=== PATIENT | female | born 1980 | race African-American/Black ===

== ENCOUNTER 2018-12-14 08:53 | Emergency (ER) | payer OTHER ==
[2018-12-14 09:00] VITALS: BP 125/79; PULSE 92; TEMP 98.4; BMI 29.7
--- NOTE | 2018-12-14 09:20 | PDOC ---
History of Present Illness - General Chief Complaint: Lightheaded Stated Complaint: DIZZY Time Seen by Provider: 12/14/18 09:04 History Source: Patient Exam Limitations: No Limitations Past History - Past Medical History Allergies/Adverse Reactions: Allergies Allergy/AdvReac Type Severity Reaction Status Date / Time No Known Allergies Allergy Verified 12/14/18 08:56 Home Medications: Ambulatory Orders NK [No Known Home Medication] 12/14/18 COPD: No - Immunization History Immunization Up to Date: No - Suicide/Smoking/Psychosocial Hx Smoking Status: No Smoking History: Never smoked Number of Cigarettes Smoked Daily: 0 *Physical Exam - Vital Signs Last Vital Signs Temp Pulse Resp BP Pulse Ox 98.4 F 92 H 16 125/79 99 12/14/18 08:58 12/14/18 08:58 12/14/18 08:58 12/14/18 08:58 12/14/18 08:58 - Physical Exam General Appearance: No: Apparent Distress Respiratory/Chest: positive: Lungs Clear, Normal Breath Sounds. negative: Respiratory Distress Cardiovascular: positive: Regular Rhythm, Regular Rate, S1, S2. negative: Murmur Gastrointestinal/Abdominal: positive: Normal Bowel Sounds, Soft. negative: Tender, Distended, Guarding, Rebound Neurologic: positive: obiee architect II-XII NML intact, Fully Oriented, Alert, Normal Mood/ Affect, Motor Strength 5/5 Moderate Sedation - Procedure Monitoring Vital Signs: Procedure Monitoring Vital Signs Temperature 98.4 F 12/14/18 08:58 Pulse Rate 92 H 12/14/18 08:58 Respiratory Rate 16 12/14/18 08:58 Blood Pressure 125/79 12/14/18 08:58 O2 Sat by Pulse Oximetry (%) 99 12/14/18 08:58 Medical Decision Making - Medical Decision Making 38 y/o F with no sig pmh presents feeling a bit dizzy around an hour ago, but not dizzy now. Mentions felt liker body was swaying, but denies vertigo. Denies fever, chills, sob, cp, abd pain, n/v/d, active bleeding, urinary complaints, changes in vision or gait, numbness/tingling/weakness of extremities. Currently asymptomatic Vitals stable, appears well, no focal deficits Not concerned for ACS or acute neurological issue (such as stroke) Stable for DC 12/14/18 09:16 *DC/Admit/Observation/Transfer Diagnosis at time of Disposition: Dizziness - Discharge Dispostion Disposition: HOME Condition at time of disposition: Stable Decision to Admit order: No - Referrals - Patient Instructions Printed Discharge Instructions: DI for Dizziness-Nonvertigo - Post Discharge Activity
== END 2018-12-14 09:41 | disposition home or self-care (01) ==
LOC: JER 08:53
DX: R42 Dizziness and giddiness (principal)
CPT/HCPCS: 99281-25

== ENCOUNTER 2024-07-01 10:52 | Emergency (ER) | payer OTHER ==
[2024-07-01 11:01] VITALS: BP 149/82; PULSE 96; RESP 18; TEMP 98.6; BMI 30.9
[2024-07-01] MEDS ORDERED: ACETAMINOPHEN 325 MG TABLET (FP) ONE (12:24)
[2024-07-01] MEDS ORDERED: BACITRACIN ZINC 15 GM TUBE TOPICAL OINTMENT ONE (12:24)
[2024-07-01] MEDS ORDERED: DIPHTH,PERTUSS(ACELL),TET 0.5 ML DISP.SYRIN IM ONE (12:24)
[2024-07-01] MEDS: DIPHTH,PERTUSS(ACELL),TET 0.5 ML DISP.SYRIN IM ONE (12:31)
[2024-07-01] MEDS: BACITRACIN ZINC 15 GM TUBE TOPICAL OINTMENT TP ONE (12:32)
[2024-07-01] MEDS: ACETAMINOPHEN 325 MG TABLET (FP) PO ONE (12:32)
== END 2024-07-01 12:35 | disposition home or self-care (01) ==
LOC: JERFT 10:52
PROC: 3E0234Z Introduction of Serum, Toxoid and Vaccine into Muscle, Percutaneous Approach (ICD-10-PCS; principal; 2024-07-01)
DX: S01.81XA Laceration without foreign body of other part of head, initial encounter (principal); X99.0XXA Assault by sharp glass, initial encounter; Z23 Encounter for immunization
CPT/HCPCS: 90471; 90715; 99284-25